=== PATIENT | female | born 1985 | race Caucasian/White ===

== ENCOUNTER 2017-01-08 01:24 | Emergency (ER) | payer OTHER ==
[2017-01-08 01:29] VITALS: RESP 16
[2017-01-08 02:01] LABS: % IMMATURE GRANULYOCYTES 0.1 % (0.0-1.1); ABSOLUTE IMMATURE GRANULOCYTES 0.01 10^3/uL (0.00-0.10); ADD DIFF? NO; ADD MORPH? NO; ADD SCAN? NO; ATYPICAL LYMPHOCYTE FLAG 10 (0-99); FRAGMENT RBC FLAG 0 (0-99); HEMATOCRIT 44.4 % (38.0-47.0); HEMOGLOBIN 14.7 g/dL (12.6-16.3); LEFT SHIFT FLG 0 (0-99); LIPEMIA HEMOLYSIS FLAG 80 (0-99); MEAN CELL HEMOGLOBIN 28.4 pg (27.9-34.1); MEAN CELL HEMOGLOBIN CONCENTR. 33.1 g/dL (32.4-36.7); MEAN CELL VOLUME 85.9 fL (81.5-99.8); MEAN PLATELET VOLUME 9.1 fL (8.7-11.7); PLATELET CLUMPS FLAG 0 (0-99); PLATELET COUNT 259 10^3/uL (150-400); RED BLOOD CELL COUNT 5.17 10^6/uL (4.18-5.33); RED CELL DISTRIBUTION WIDTH 13.9 % (11.5-15.2)
[2017-01-08 02:08] LABS: ALANINE AMINOTRANSFERASE 28 IU/L (9-52); ALBUMIN 4.9 g/dL (3.5-5.0); ALKALINE PHOSPHATASE 57 IU/L (38-126); ANION GAP 16 mEq/L (8-16); ASPARTATE AMINOTRANSFERASE 24 IU/L (14-46); BILIRUBIN,TOTAL 0.2 mg/dL (0.1-1.4); BILIRUBIN-UNCONJUGATED 0.2 mg/dL (0.0-1.1); CALCIUM 10.2 mg/dL (8.5-10.4); CARBON DIOXIDE 22 mEq/l (22-31); CHLORIDE 104 mEq/L (97-110); CREATININE 0.7 mg/dL (0.6-1.0); GLOMERULAR FILTRATION RATE > 60; GLUCOSE 99 mg/dL (70-100); POTASSIUM 3.9 mEq/L (3.5-5.2); SODIUM 142 mEq/L (134-144)
[2017-01-08] MEDS ORDERED: HYOSCYAMINE SULFATE 0.125 MG TAB PO ONE (02:14)
[2017-01-08] MEDS ORDERED: MAG HYDROX/AL HYDROX/SIMETH 30 ML UDCUP PO ONE (02:15)
[2017-01-08] MEDS ORDERED: LIDOCAINE 2% VISCOUS 15 ML UDCUP PO ONE (02:16)
--- NOTE | 2017-01-08 03:19 | EDPHY ---
H & P Stated Complaint: abd pain HPI/ROS: HPI The patient presents with epigastric abdominal pain, brought in by ambulance. She has had the pain intermittently for the last 1 week though it has become severe tonight at about 10:00 p.m. while she was in bed. The pain is sharp, radiates toward her back, has been constant. She took a dose of her 's omeprazole earlier in the week with improvement in her symptoms. She ate dinner at about 6:30 p.m. and had a snack at 8:30 p.m.. She has been drinking alcohol, more recently because of some stress in her life. She was also recently treated with antibiotics, 2 courses for strep throat with scarlet fever. She has had vomiting with this pain. She has no prior history of similar pain. She denies any dark or bloody stools.. REVIEW OF SYSTEMS Constitutional: No fever, no chills. Eyes: No discharge. ENT: No sore throat. Cardiovascular: No chest pain, no palpitations. Respiratory: No cough, no shortness of breath. Gastrointestinal: See HPI Genitourinary: No hematuria. Musculoskeletal: No back pain. Skin: No rashes. Neurological: No headache. PMHx: Healthy, recent strep infection and course of antibiotics Soc Hx: Heavy alcohol use, lives at home with in 3 young children PHYSICAL General Appearance: Alert, no distress Eyes: Pupils equal and round no pallor or injection ENT, Mouth: Mucous membranes moist Respiratory: There are no retractions, lungs are clear to auscultation Cardiovascular: Regular rate and rhythm Gastrointestinal: Abdomen is soft with mild epigastric tenderness, there is no guarding or rebound Neurological: A&O, moves all extremities Skin: Warm and dry, no rashes Musculoskeletal: Neck is supple non tender Extremities: symmetrical, full range of motion Psychiatric: Patient is oriented X 3, there is no agitation Source: Patient, EMS Exam Limitations: No limitations - Personal History LMP (Females 10-55): 15-21 Days Ago Current Tetanus/Diphtheria Vaccine: Unsure Current Tetanus Diphtheria and Acellular Pertussis (TDAP): Unsure - Medical/Surgical History Hx Asthma: No Hx Chronic Respiratory Disease: No Hx Diabetes: No Hx Cardiac Disease: No Hx Renal Disease: No Hx Cirrhosis: No Hx Alcoholism: No Hx HIV/AIDS: No Hx Splenectomy or Spleen Trauma: No - Social History Smoking Status: Never smoked Constitutional: Initial Vital Signs Temperature (C) 36.5 C 01/08/17 01:23 Heart Rate 79 01/08/17 01:23 Respiratory Rate 16 01/08/17 01:23 Blood Pressure 108/60 01/08/17 01:23 O2 Sat (%) 98 01/08/17 01:23 O2 Delivery Mode Room Air Allergies/Adverse Reactions: No Known Allergies Allergy (Unverified 01/08/17 01:29) Home Medications: Medication Instructions Recorded Famotidine [Pepcid 20 MG (*)] 20 mg PO BID #30 tab 01/08/17 Medical Decision Making Procedures: Bedside right upper quadrant Ultrasound- performed and interpreted by me. Indication: Epigastric abdominal pain Findings: Normal appearing gallbladder, no gallbladder stones, no gallbladder wall thickening, no pericholecystic fluid Impression: No sonographic evidence for acute cholecystitis or coli lithiasis. Differential Diagnosis: This is a 31-year-old female, relatively healthy, who is brought in by ambulance for severe epigastric pain which began several hours prior to presentation. On exam, she has normal vital signs, she has mild epigastric tenderness. Prior to my assessment she has received famotidine in a GI cocktail with improvement in her symptoms. Basic labs were checked and these were all unremarkable. Given her heavy alcohol use, alcoholic gastritis or pancreatitis are likely causes of her pain. Given normal lipase, I feel that gastritis is unlikely. Right upper quadrant ultrasound is performed to evaluate for cholelithiasis, this is unremarkable. The patient will be discharged with a course of famotidine, advised to stop drinking alcohol and modify diet, avoiding spicy or acidic foods. She will be discharged home. She does have a primary care doctor in can arrange for follow- up in the next few days. I have advised her to return to the emergency department if she is worse in any way. - Data Points Laboratory Results: Laboratory Results 01/08/17 01:30 01/08/17 01:30 01/08/17 01/08/17 01:30 01:30 WBC 6.99 10^3/uL 10^3/uL (3.80-9.50) RBC 5.17 10^6/uL 10^6/uL (4.18-5.33) Hgb 14.7 g/dL g/dL (12.6-16.3) Hct 44.4 % % (38.0-47.0) MCV 85.9 fL fL (81.5-99.8) MCH 28.4 pg pg (27.9-34.1) MCHC 33.1 g/dL g/dL (32.4-36.7) RDW 13.9 % % (11.5-15.2) Plt Count 259 10^3/uL 10^3/uL (150-400) MPV 9.1 fL fL (8.7-11.7) Neut % (Auto) 51.3 % % (39.3-74.2) Lymph % (Auto) 40.5 % % (15.0-45.0) Kingfisher % (Auto) 5.6 % % (4.5-13.0) Eos % (Auto) 2.1 % % (0.6-7.6) Baso % (Auto) 0.4 % % (0.3-1.7) Nucleat RBC Rel Count 0.0 % % (0.0-0.2) Absolute Neuts (auto) 3.58 10^3/uL 10^3/uL (1.70-6.50) Absolute Lymphs (auto) 2.83 10^3/uL 10^3/uL (1.00-3.00) Absolute Monos (auto) 0.39 10^3/uL 10^3/uL (0.30-0.80) Absolute Eos (auto) 0.15 10^3/uL 10^3/uL (0.03-0.40) Absolute Basos (auto) 0.03 10^3/uL 10^3/uL (0.02-0.10) Absolute Nucleated RBC 0.00 10^3/uL 10^3/uL (0-0.01) Immature Gran % 0.1 % % (0.0-1.1) Immature Gran # 0.01 10^3/uL 10^3/uL (0.00-0.10) Sodium 142 mEq/L mEq/L (134-144) Potassium 3.9 mEq/L mEq/L (3.5-5.2) Chloride 104 mEq/L mEq/L (97-110) Carbon Dioxide 22 mEq/l mEq/l (22-31) Anion Gap 16 mEq/L mEq/L (8-16) BUN 11 mg/dL mg/dL (7-23) Creatinine 0.7 mg/dL mg/dL (0.6-1.0) Estimated GFR > 60 Glucose 99 mg/dL mg/dL (70-100) Calcium 10.2 mg/dL mg/dL (8.5-10.4) Total Bilirubin 0.2 mg/dL mg/dL (0.1-1.4) Conjugated Bilirubin 0.0 mg/dL mg/dL (0.0-0.5) Unconjugated Bilirubin 0.2 mg/dL mg/dL (0.0-1.1) AST 24 IU/L IU/L (14-46) ALT 28 IU/L IU/L (9-52) Alkaline Phosphatase 57 IU/L IU/L (38-126) Total Protein 8.0 g/dL g/dL (6.3-8.2) Albumin 4.9 g/dL g/dL (3.5-5.0) Lipase 137 IU/L IU/L (23-300) Medications Given: Discontinued Medications Al Hydroxide/Mg Hydroxide (Maalox Susp) 30 ml PO EDNOW ONE Stop: 01/08/17 02:16 Last Admin: 01/08/17 02:18 Dose: 30 ml Hyoscyamine Sulfate (Levsin, Hyomax-Sl) 0.25 mg PO EDNOW ONE Stop: 01/08/17 02:15 Last Admin: 01/08/17 02:18 Dose: 0.25 mg Lidocaine (Lidocaine 2% Viscous) 5 ml PO EDNOW ONE Stop: 01/08/17 02:17 Last Admin: 01/08/17 02:18 Dose: 5 ml Departure - Departure Disposition: Home, Routine, Self-Care Clinical Impression: Gastritis Qualifiers: Gastritis type: unspecified gastritis Chronicity: acute Gastritis bleeding: without bleeding Qualified Code(s): K29.00 - Acute gastritis without bleeding Condition: Good Instructions: Gastritis (ED) Additional Instructions: Please stop drinking alcohol. You should avoid any spicy or acidic foods. Please make sure to drink plenty of fluids. You should take the famotidine as prescribed. Please follow-up with your doctor in a few days. Please return if your worse in any way. Referrals: NONE *PRIMARY CARE P,. [Primary Care Provider] - As per Instructions Prescriptions: Famotidine [Pepcid 20 MG (*)] 20 mg PO BID #30 tab
[2017-01-08 03:28] VITALS: BP 103/63; PULSE 84; TEMP 98.2; O2SAT 99
== END 2017-01-08 03:27 | disposition home or self-care (01) ==
LOC: EDUNIT#
DX: K29.00 Acute gastritis without bleeding (principal)

== ENCOUNTER → 2017-10-11 | Outpatient (CLI) | payer OTHER | LOC: FIMAGING 10:29 | PROVIDERS: ATTEND Physician Assistant Medical | DX: R10.32 Left lower quadrant pain (principal); N83.202 Unspecified ovarian cyst, left side; N83.8 Other noninflammatory disorders of ovary, fallopian tube and broad ligament ==